=== PATIENT | female | born 1975 | race Caucasian/White ===

== ENCOUNTER 2019-01-10 17:49 | Emergency (ER) | payer OTHER ==
[~2019-01-10] VITALS: Ht 170.2 cm; Wt 86.2 kg
[~2019-01-10 17:49] MED LIST: NOHOMEMEDICATIONS
[2019-01-10] MEDS ORDERED: HYDROXYZINE HCL25 M2 PO (18:04)
[2019-01-10] MEDS ORDERED: PREDNISONE 20 M20 MG PO (18:04)
[2019-01-10 18:14] VITALS: BP 138/92
== END 2019-01-10 18:15 | disposition home or self-care (01) ==
LOC: ER 17:49
DX: L50.9 Urticaria, unspecified (principal); F17.210 Nicotine dependence, cigarettes, uncomplicated